=== PATIENT | female | born 1990 | race Caucasian/White ===

== ENCOUNTER 2017-06-08 06:31 | Emergency (ER) | payer OTHER ==
[2017-06-08 06:54] VITALS: TEMP 98.4; BMI 25.0
--- NOTE | 2017-06-08 07:02 | PDOC ---
History of Present Illness - General Chief Complaint: Vaginal Sxs Stated Complaint: VAGINAL DISCHARGE/13 WKS Time Seen by Provider: 06/08/17 07:02 History Source: Patient - History of Present Illness Initial Comments: 06/08/17 07:18 26 y.o. @ self-reported 13 weeks gestation (LMP February 2017) who presents to the ED c/o vaginal discharge. Patient states she felt a "gush of fluid" yesterday afternoon while urinating and continued to have discharge noticing her underpants were wet. Patient states the discharge was clear colored, non-odorous. Patient endorses some intermittent diffuse, intermittent abdominal cramping without any identifiable triggering or relieving factors. Patient denies any vaginal bleeding, fevers/chills, nausea/vomiting, diarrhea/ constipation, dysuria/hematuria and notes she has had limited care due to insurance complications. Patient was evaluated at a free clinic in [place] last month at which time a TVUS showed no concerning findings however she has otherwise had limited care 2/2 to insurance complications.. NKDA Surgical: denies Social: denies cigarettes, denies alcohol, limited marijuana use during early OB-Hr Administrator: none, will refer @ discharge as well as referral to resident clinic to establish primary care Past History - Past Medical History Allergies/Adverse Reactions: Allergies Allergy/AdvReac Type Severity Reaction Status Date / Time No Known Allergies Allergy Verified 06/08/17 06:58 Home Medications: Ambulatory Orders NK [No Known Home Medication] 06/08/17 COPD: No - Reproductive History Is Patient Now?: Yes - Suicide/Smoking/Psychosocial Hx Smoking History: Never smoked Have you smoked in the past 12 months: No Information on smoking cessation initiated: No Hx Alcohol Use: No Drug/Substance Use Hx: No Review of Systems - Review of Systems Constitutional: No: Chills, Fever HEENTM: No: Recent change in vision Respiratory: No: Cough, Shortness of Breath Cardiac (ROS): No: Chest Pain, Lightheadedness, Palpitations, Syncope ABD/GI: Yes: Abdominal cramping (intermittent, diffuse). No: Blood Streaked Bowels, Constipated, Diarrhea, Nausea, Vomiting : No: Burning, Dysuria Psychiatric: No: Anxiety, Depression *Physical Exam - Vital Signs Last Vital Signs Temp Pulse Resp BP Pulse Ox 98.4 F 86 18 113/61 99 06/08/17 06:51 06/08/17 06:51 06/08/17 06:51 06/08/17 06:51 06/08/17 06:51 - Physical Exam Comments: 06/08/17 07:40 GENERAL: The patient is awake, alert, and fully oriented, and non-toxic appearing . HEAD: Normocephalic, atraumatic. EYES: extraocular movements intact, sclera anicteric, conjunctiva clear. ENT: Normal voice, Moist mucous membranes NECK: Normal range of motion, supple LUNGS: Breath sounds equal, clear to auscultation bilaterally, No wheezes, no rhonchi, no rales. HEART: Regular rate and rhythm, normal S1 and S2 without murmur, rub or gallop. ABDOMEN: Soft, nontender, normoactive bowel sounds. Fundal height @ pubic symphysis : Pelvic exam: closed cervical os, minor physiologic discharge EXTREMITIES: Normal range of motion, no edema, No clubbing or cyanosis. No cords , erythema, or tenderness. NEUROLOGICAL: No facial asymmetry, Normal speech PSYCH: Normal mood, normal affect. SKIN: Warm, Dry, normal turgor ED Treatment Course - LABORATORY CBC & Chemistry Diagram: 06/08/17 07:44 06/08/17 07:44 Medical Decision Making - Medical Decision Making 06/08/17 07:42 26 y.o. female @ self-reported 13 weeks gestation who presents w/isolated episode of vaginal discharge with some continuing intermittent abdominal cramping. Patient non-toxic appearing with soft abdomen, uterine fundus @ pubic symphysis, closed cervical os with scant whitish discharge. Will send B-HCG, CBC, T/S and obtain TVUS to evaluate for IUP. 06/08/17 08:50 Beta HCG 26,980 c/w reported LMP of February 2017/14 week gestation. Blood Type A (+) no indication for Rhogam. Patient continues to rest comfortably, partner and family @ beside - counseled on plan of care. 06/08/17 08:58 TVUS shows IUP with FHR 149. Patient to be discharged home with return precautions and emphatic counseling on the importance of establishing care. Patient improved, ambulatory and tolerating PO intake, discharged with referral to OB-Hr Administrator and IM resident clinic. I discussed the physical exam findings, ancillary test results and final diagnoses with the patient. I answered all of the patient's questions. The patient was satisfied with the care received and felt comfortable with the discharge plan and treatment plan. The patient will return to the Emergency Department with any new, persistent or worsening symptoms. *DC/Admit/Observation/Transfer Diagnosis at time of Disposition: - Discharge Dispostion Disposition: HOME Condition at time of disposition: Good Admit: No - Referrals Referrals: Ivan Jaramillo MD [Staff Physician] - Jacob Alonzo MD [Staff Physician] - - Patient Instructions Additional Instructions: Please make an appointment in the next [address] Betancourt (contact information provided) for care. A referral has also been provided to Dr. Jaramillo for primary care. Return to the Emergency Department for any new/ worsening/concerning symptoms. - Post Discharge Activity
[2017-06-08 08:02] LABS: BASO % 0.5 % (0-2.0); HEMATOCRIT 33.3 % (32.4-45.2); HEMOGLOBIN 11.6 GM/dL (10.7-15.3); LYMPH % 27.1 % (8-40); MCH 30.5 pg (25.7-33.7); MCHC 34.9 g/dl (32.0-36.0); MEAN CELL VOLUME 87.2 fl (80-96); MEAN PLT VOLUME 9.6 fl (7.5-11.1); MONO % 8.2 % (3.8-10.2); NEUT % 63.2 % (42.8-82.8); PLATELET COUNT 203 K/MM3 (134-434); RBC 3.81 M/mm3 (3.60-5.2); RDW 12.9 % (11.6-15.6); WHITE BLOOD COUNT 10.3 K/mm3 (4.0-10.0)
[2017-06-08 08:28] LABS: ALBUMIN 3.9 g/dl (3.4-5.0); ANION GAP 9 (8-16); BILIRUBIN,TOTAL 0.3 mg/dL (0.2-1.0); BLOOD UREA NITROGEN 8 mg/dL (7-18); CALCIUM 9.5 mg/dL (8.5-10.1); CHLORIDE 103 mmol/L (98-107); CO2 24 mmol/L (21-32); CREATININE 0.4 mg/dL (0.55-1.02); GLUCOSE,RANDOM 73 mg/dL (74-106); POTASSIUM 3.6 mmol/L (3.5-5.1); SGOT/AST 11 U/L (15-37); SGPT/ALT 9 U/L (12-78); SODIUM 136 mmol/L (136-145); TOT PROT 7.3 g/dl (6.4-8.2)
[2017-06-08 08:37] LABS: INR 0.99 (0.82-1.09); PROTHROMBIN TIME (PATIENT) 11.2 SEC (9.98-11.88)
--- NOTE | 2017-06-08 08:37 | PDOC ---
Attending Attestation - Resident Resident Name: AleshiaSarah - ED Attending Attestation I have performed the following: I have examined & evaluated the patient, The case was reviewed & discussed with the resident, I agree w/resident's findings & plan, Exceptions are as noted - HPI HPI: 06/08/17 08:34 Healthy 26-year-old female about 13 weeks gestation presents with vaginal discharge with slight cramping. no blood. normal 1st trimester ultrasound. - Physicial Exam PE: 06/08/17 08:35 Vital signs stable Agree with exam, os closed - Medical Decision Making 06/08/17 08:35 Patient seen and evaluated with the resident. I agree with the overall evaluation, assessment, and management with the following summary of visit: 26-year-old female early second trimester vaginal discharge. We'll rule out miscarriage versus placental abnormality. Labs, urinalysis ultrasound dispo accordingly
[2017-06-08 08:45] LABS: ALK PHOS 47 U/L (45-117)
[2017-06-08 08:51] LABS: URINE APPEARANCE TURBID; URINE BILIRUBIN NEGATIVE (NEGATIVE); URINE BLOOD NEGATIVE (NEGATIVE); URINE COLOR DKYELLOW; URINE GLUCOSE (UA) NEGATIVE (NEGATIVE); URINE KETONE NEGATIVE (NEGATIVE); URINE LEUK ESTERASE NEGATIVE (NEGATIVE); URINE NITRITE NEGATIVE (NEGATIVE); URINE PROTEIN NEGATIVE (NEGATIVE); URINE UROBILINOGEN NEGATIVE mg/dL (0.2-1.0)
[2017-06-08 10:51] VITALS: BP 104/76; PULSE 83
== END 2017-06-08 10:30 | disposition home or self-care (01) ==
LOC: JER 06:31
DX: O26.892 Other specified pregnancy related conditions, second trimester (principal); N89.8 Other specified noninflammatory disorders of vagina; Z3A.14 14 weeks gestation of pregnancy
CPT/HCPCS: 36415; 76815-TC; 76817-TC; 80053; 81003; 84702; 85025; 85610; 86850; 86900; 86901; 99282-25